=== PATIENT | female | born 1965 | race Caucasian/White ===

== ENCOUNTER 2017-07-13 18:44 | Emergency (ER) | payer BC ==
--- NOTE | 2017-07-13 19:47 | EDM.PDOC ---
ED HPI GENERAL MEDICAL PROBLEM - General Chief Complaint: Lower Extremity Injury/Pain Stated Complaint: R LEG PAIN Time Seen by Provider: 07/13/17 19:35 Source of Information: Reports: Patient History Limitations: Reports: No Limitations - History of Present Illness INITIAL COMMENTS - FREE TEXT/NARRATIVE: 52 yo female slipped on the ice before arrival and basically did the splits. In doing so she injured her posterior R proximal thigh area. Has intermittent spasming. Has her own crutches. Here with her . No other injuries in the fall. Onset: Today Onset Date: 07/13/17 Onset Time: 18:25 Duration: Minutes:, Intermittent Location: Reports: Lower Extremity, Right Quality: Reports: Stabbing Severity: Moderate Improves with: Reports: Rest Worsens with: Reports: Movement Context: Reports: Trauma Associated Symptoms: Reports: No Other Symptoms Treatments FELLER HAND: Reports: Other (see below) (none) right hamstring Pain Score (Numeric/FACES): 4 - Related Data Allergies Allergy/AdvReac Type Severity Reaction Status Date / Time Sulfa (Sulfonamide Allergy Rash Verified 07/13/17 19:26 Antibiotics) meperidine HCl [From Demerol] AdvReac Nausea and Verified 07/13/17 19:26 Vomiting Home Meds: Home Meds Fluticasone/Salmeterol [Advair Diskus 500-50] 1 puff INH BID 07/13/17 [History] Mometasone Furoate [Nasonex [employer]] 2 spray MI DAILY PRN 07/13/17 [History] Montelukast [Singulair] 10 mg PO ONETIME 07/13/17 [History] Pantoprazole Sodium 40 mg PO DAILY 07/13/17 [History] Past Medical History Cardiovascular History: Reports: High Cholesterol Respiratory History: Reports: Asthma Gastrointestinal History: Reports: GERD [employer] SPECIALTY History: Reports: Polycystic Ovaries Musculoskeletal History: Reports: Fracture - Past Surgical History HEENT Surgical History: Reports: Naso-Sinus Surgery, Tonsillectomy GI Surgical History: Reports: Appendectomy Social & Family History - Tobacco Use Smoking Status *Q: Former Smoker Used Tobacco, but Quit: Yes Month Tobacco Last Used: 1989 - Alcohol Use Days Per Week of Alcohol Use: 5 Number of Drinks Per Day: 2 Total Drinks Per Week: 10 - Recreational Drug Use Recreational Drug Use: No Review of Systems - Review of Systems Review Of Systems: See Below Constitutional: Reports: No Symptoms Musculoskeletal: Reports: Leg Pain Skin: Reports: No Symptoms Neurological: Reports: No Symptoms ED EXAM, GENERAL - Physical Exam Exam: See Below Exam Limited By: No Limitations General Appearance: Alert, WD/WN, No Apparent Distress Eye Exam: Bilateral Eye: Normal Inspection Ears: Normal External Exam, Normal Canal, Hearing Grossly Normal Ear Exam: Bilateral Ear: Auricle Normal, Canal Normal Nose: Normal Inspection, Normal Mucosa, No Blood Throat/Mouth: Normal Inspection, Normal Lips, Normal Oropharynx, Normal Voice, No Airway Compromise Head: Atraumatic, Normocephalic Neck: Normal Inspection, Supple Respiratory/Chest: Lungs Clear, Normal Breath Sounds, No Accessory Muscle Use, Chest Non-Tender Cardiovascular: Regular Rate, Rhythm Extremities: Normal Inspection, No Pedal Edema, Leg Pain (pain over the proximal R hamstring, no deformity.), Other (Increased pain with attempts at straight leg raising on the right. ) Neurological: Alert, Oriented, CN II-XII Intact, Normal Cognition, No Motor/ Sensory Deficits Course - Vital Signs Last Recorded V/S: Last Vital Signs Temp 36.8 C 07/13/17 19:39 Pulse 85 07/13/17 19:39 Resp 16 07/13/17 19:39 BP 147/68 H 07/13/17 19:39 Pulse Ox 95 07/13/17 19:39 Departure - Departure Time of Disposition: 19:48 Disposition: Home, Self-Care 01 Condition: Good Clinical Impression: Hamstring sprain - Discharge Information Referrals: Juan A Healy MD [Primary Care Provider] - Forms: ED Department Discharge
== END 2017-07-13 19:43 | disposition home or self-care (01) ==
LOC: JP.ED 18:44
DX: S76.311A Strain of muscle, fascia and tendon of the posterior muscle group at thigh level, right thigh, initial encounter (principal); E78.00 Pure hypercholesterolemia, unspecified; J45.909 Unspecified asthma, uncomplicated; K21.9 Gastro-esophageal reflux disease without esophagitis; Z87.891 Personal history of nicotine dependence; Z79.899 Other long term (current) drug therapy; Z88.2 Allergy status to sulfonamides; Z88.5 Allergy status to narcotic agent; W00.0XXA Fall on same level due to ice and snow, initial encounter
CPT/HCPCS: 99283